=== PATIENT | male | born 1975 | race American Indian/Alaskan Native ===

== ENCOUNTER 2017-12-04 23:10 | Emergency (ER) | payer OTHER ==
[2017-12-05] MEDS ORDERED: PROVENTIL IH ONE ×2 (03:23→03:45)
[2017-12-05] MEDS ORDERED: TYLENOL ONE (03:36)
[2017-12-05 03:38] VITALS: BP 158/94
[2017-12-05] MEDS ORDERED: TYLENOL PO ONE (03:40)
[2017-12-05 04:06] LABS: Basophils % (Auto) 0.6 % (0.0-1.8); Eosinophils # (Auto) 0.1 K/mm3 (0.0-0.4); Eosinophils % (Auto) 0.8 % (0.0-4.3); Hematocrit 42.4 % (35.5-45.6); Hemoglobin 14.5 gm/dl (11.8-15.2); Lymphocytes # (Auto) 2.1 K/mm3 (1.2-5.4); Lymphocytes % (Auto) 29.8 % (13.4-35.0); Mean Corpuscular HGB Conc 34 % (32-34); Mean Corpuscular Hemoglobin 30 pg (28-32); Mean Corpuscular Volume 88 fl (84-94); Monocytes # (Auto) 0.5 K/mm3 (0.0-0.8); Monocytes % (Auto) 7.1 % (0.0-7.3); Platelet Count 200 K/mm3 (140-440); Red Blood Count 4.81 M/mm3 (3.65-5.03); Red Cell Distribution Width 14.3 % (13.2-15.2)
--- NOTE | 2017-12-05 04:33 | XRay Report ---
FINAL REPORT EXAM: XR TOE(S) 2+V RT HISTORY: RIGHT 4TH TOE PAIN TECHNIQUE: AP and lateral views of the right 4th toe were obtained. FINDINGS: There is an acute obliquely oriented nondisplaced fracture through the midshaft of the proximal phalanx of the 4th toe with adjacent soft tissue swelling. IMPRESSION: Acute obliquely oriented nondisplaced fracture through the midshaft of the proximal phalanx of the 4th toe.
--- NOTE | 2017-12-05 04:35 | Cat Scan Report ---
FINAL REPORT EXAM: CT HEAD/BRAIN WO CON HISTORY: HEADACHE TECHNIQUE: Routine axial imaging was obtained of the brain without IV contrast. FINDINGS: The ventricular system is appropriate in size and is symmetric. There is no evidence of acute stroke or hemorrhage. There are no extra-axial fluid collections. The basal cisterns appear normal. The visualized sinuses are clear. The mastoid air cells are well pneumatized. The calvarium appears intact. IMPRESSION: Within normal limits.
--- NOTE | 2017-12-05 04:36 | XRay Report ---
FINAL REPORT EXAM: XR CHEST ROUTINE 2V HISTORY: DIFFICULTY IN BREATHING. TECHNIQUE: PA and lateral views of the chest were submitted. FINDINGS: The heart size and vascularity appear normal. The lungs are clear. Pleural fluid is not seen. The skeletal structures do not show any acute changes. IMPRESSION: No acute cardiopulmonary process.
[2017-12-05 04:45] LABS: BUN/Creatinine Ratio 12; Blood Urea Nitrogen 17 mg/dL (9-20); Calcium 9.2 mg/dL (8.4-10.2); Hemolysis Index 10
--- NOTE | 2017-12-05 06:11 | Emergency Department Report ---
ED General Adult HPI - General Chief complaint: Headache Stated complaint: SOB,RIGHT FOOT TOE PAIN Time Seen by Provider: 12/05/17 05:59 Source: patient Mode of arrival: Ambulatory Limitations: No Limitations - History of Present Illness Initial comments: Patient presents for multiple complaints including shortness of breath headache and right toe pain, advises to pain his primary concern headache and shortness of breath or chronic conditions for past 5-6 years patient denies fall or trauma , current symptoms include, 3/10 frontal headcache, denies sob, pt is ambulatory to baseline per patinient righ 4th toe mild erythema swelling pain with movement. Onset/Timin -: week(s) Location: lower extremity Radiation: non-radiation Severity scale (0 -10): 6 Quality: aching, sharp Consistency: constant Improves with: rest Worsens with: movement Treatments Prior to Arrival: none, Aspirin - Related Data Previous Rx's Medication Instructions Recorded Last Taken Type Ondansetron [Zofran Odt] 4 mg SL Q6H PRN #8 tab.rapdis 01/19/15 Unknown Rx Oxycodone HCl/Acetaminophen 1 each PO Q6HR PRN #15 tablet 01/19/15 Unknown Rx [Percocet 10/325 mg] Promethazine [Phenergan TAB] 25 mg PO Q6HR PRN #12 tab 01/19/15 Unknown Rx Ranitidine HCl [Zantac 150 MG TAB] 150 mg PO Q12H #30 tablet 01/19/15 Unknown Rx diazePAM TAB [Valium] 5 mg PO Q8H PRN #15 tablet 01/19/15 Unknown Rx traMADol [Ultram] 50 mg PO Q6HR PRN #12 tablet 12/05/17 Unknown Rx Allergies Allergy/AdvReac Type Severity Reaction Status Date / Time No Known Allergies Allergy Verified 01/19/15 00:18 ED Review of Systems ROS: Stated complaint: SOB,RIGHT FOOT TOE PAIN Other details as noted in HPI Constitutional: weakness. denies: chills, fever Eyes: as per HPI, eye discharge, vision change ENT: as per HPI, dental pain, congestion Respiratory: denies: cough, shortness of breath, wheezing Cardiovascular: denies: chest pain, palpitations, edema, syncope, paroxysmal nocturnal dyspnea Endocrine: no symptoms reported Gastrointestinal: denies: abdominal pain, nausea, diarrhea Genitourinary: discharge. denies: urgency, dysuria Musculoskeletal: denies: back pain, joint swelling, arthralgia Skin: denies: rash, lesions Neurological: denies: headache, weakness, paresthesias Psychiatric: denies: anxiety, depression Hematological/Lymphatic: denies: easy bleeding, easy bruising ED Past Medical Hx - Past Medical History Hx Hypertension: Yes Hx Headaches / Migraines: Yes (MIGRAINE) - Surgical History Past Surgical History?: No - Social History Smoking Status: Current Every Day Smoker Substance Use Type: Marijuana - Medications Home Medications: Home Medications Medication Instructions Recorded Confirmed Last Taken Type Ondansetron [Zofran Odt] 4 mg SL Q6H PRN #8 tab.rapdis 01/19/15 Unknown Rx Oxycodone HCl/Acetaminophen 1 each PO Q6HR PRN #15 tablet 01/19/15 Unknown Rx [Percocet 10/325 mg] Promethazine [Phenergan TAB] 25 mg PO Q6HR PRN #12 tab 01/19/15 Unknown Rx Ranitidine HCl [Zantac 150 MG TAB] 150 mg PO Q12H #30 tablet 01/19/15 Unknown Rx diazePAM TAB [Valium] 5 mg PO Q8H PRN #15 tablet 01/19/15 Unknown Rx traMADol [Ultram] 50 mg PO Q6HR PRN #12 tablet 12/05/17 Unknown Rx ED Physical Exam - General Limitations: No Limitations General appearance: alert, in no apparent distress - Head Head exam: Present: atraumatic, normocephalic - Eye Eye exam: Present: normal appearance, PERRL, EOMI, scleral icterus, conjunctival injection, nystagmus. Absent: periorbital swelling, periorbital tenderness Pupils: Present: normal accommodation - ENT ENT exam: Present: normal exam, normal orophraynx, mucous membranes moist, TM's normal bilaterally, normal external ear exam - Neck Neck exam: Present: normal inspection, full ROM. Absent: tenderness, meningismus, lymphadenopathy, thyromegaly - Respiratory Respiratory exam: Present: normal lung sounds bilaterally, rhonchi, chest wall tenderness. Absent: respiratory distress, wheezes - Cardiovascular Cardiovascular Exam: Present: regular rate, normal rhythm, normal heart sounds. Absent: systolic murmur, diastolic murmur, rubs, gallop - GI/Abdominal GI/Abdominal exam: Present: soft, normal bowel sounds. Absent: tenderness, bruit, hernia - Rectal Rectal exam: Present: deferred - Extremities Exam Extremities exam: Present: normal inspection, full ROM, normal capillary refill , pedal edema, joint swelling. Absent: calf tenderness - Back Exam Back exam: Present: normal inspection, full ROM, tenderness, CVA tenderness (R) , CVA tenderness (L). Absent: muscle spasm, paraspinal tenderness - Neurological Exam Neurological exam: Present: alert, oriented X3, CN II-XII intact, motor sensory deficit, reflexes normal. Absent: normal gait - Psychiatric Psychiatric exam: Present: normal affect, normal mood - Skin Skin exam: Present: warm, dry, intact, normal color. Absent: rash ED Course Vital Signs 12/04/17 12/05/17 12/05/17 23:14 03:24 03:34 Temperature 98.7 F 98.7 F Pulse Rate 99 H 97 H 81 Respiratory 18 18 20 Rate Blood Pressure 152/96 152/96 Blood Pressure 158/94 [Left] O2 Sat by Pulse 96 98 98 Oximetry ED Medical Decision Making - Lab Data Result diagrams: 12/05/17 03:46 12/05/17 03:46 Laboratory Tests 12/05/17 12/05/17 03:46 03:46 WBC 6.9 RBC 4.81 Hgb 14.5 Hct 42.4 MCV 88 MCH 30 MCHC 34 RDW 14.3 Plt Count 200 Lymph % (Auto) 29.8 Rogers % (Auto) 7.1 Eos % (Auto) 0.8 Baso % (Auto) 0.6 Lymph # 2.1 Rogers # 0.5 Eos # 0.1 Baso # 0.0 Seg Neutrophils % 61.7 Seg Neutrophils # 4.3 Sodium 136 L Potassium 3.8 Chloride 99.3 Carbon Dioxide 24 Anion Gap 17 BUN 17 Creatinine 1.4 Estimated GFR > 60 BUN/Creatinine Ratio 12 Glucose 196 H Calcium 9.2 - Radiology Data Radiology results: report reviewed, image reviewed interpreted by me: CT head is normal, Xray: chest normal opacities no infiltrates, right foot x- ray positive for acute obliquely oriented nondisplaced fracture through the midshaft of the proximal phalanx of the fourth toe - Medical Decision Making Right fourth toe fracture plan (acute fever HIS mom is comfortable this is improvement is is positive removal is to my office around his nose; Ankush tape postop shoe and follow with orthopedic surgery in 2-3 days patient verbalized agreement and understanding with same DC' d to home in stable condition at this time patient will follow up with PCP for headaches chronic over the last 5 years with no change in location duration and intensity patient denies headache symptoms at this time tolerating by mouth as we speak. Critical care attestation.: If time is entered above; I have spent that time in minutes in the direct care of this critically ill patient, excluding procedure time. ED Disposition Clinical Impression: Closed fracture of fourth toe of right foot Qualifiers: Encounter type: initial encounter Qualified Code(s): S92.501A - Displaced unspecified fracture of right lesser toe(s), initial encounter for closed fracture Disposition: DC-01 TO HOME OR SELFCARE Is pt being admited?: No Does the pt Need Aspirin: No Condition: Good Instructions: Toe Fracture (ED) Prescriptions: traMADol [Ultram] 50 mg PO Q6HR PRN #12 tablet PRN Reason: Pain Referrals: PRIMARY CAREMD [Primary Care Provider] - 3-5 Days ODETTE HERNANDEZ MD [Staff Physician] - 3-5 Days Forms: Work/School Release Form(ED) Time of Disposition: 06:27
== END 2017-12-05 06:56 | disposition home or self-care (01) ==
LOC: ED 23:10
DX: S92.501A Displaced unspecified fracture of right lesser toe(s), initial encounter for closed fracture (principal); I10 Essential (primary) hypertension; G43.909 Migraine, unspecified, not intractable, without status migrainosus; F12.10 Cannabis abuse, uncomplicated; F17.200 Nicotine dependence, unspecified, uncomplicated; Z79.899 Other long term (current) drug therapy; X58.XXXA Exposure to other specified factors, initial encounter; Y93.89 Activity, other specified; Y99.8 Other external cause status; Y92.89 Other specified places as the place of occurrence of the external cause
CPT/HCPCS: 36415; 70450; 71046; 80048; 85025